=== PATIENT | male | born 1960 | race Caucasian/White ===

== ENCOUNTER 2018-02-21 11:12 | Inpatient (IN) | payer OTHER ==
[~2018-02-21] VITALS: Ht 182.9 cm; Wt 122.5 kg
[~2018-02-21 11:12] MED LIST: AMLODIPINE BESYL5 M1 PO; ASPIRIN EC81 M1 PO; CETIRIZINE HCL10 M1 PO; CLARITIN10 MG PO; DEXILANT60 M1 PO; DEXILANT60 MG PO; DULOXETINE HCL60 MG PO; GABAPENTIN300 M2 PO; GLUCOPHAGE1000 M1 PO; HUMULIN 70100 UNIT/1 SC; IBUPROFEN200 M3 PO; INVOKANA300 M1 PO; INVOKANA300 MG PO; MAGNESIUM OXID400 MG PO; MAGNESIUM250 M2 PO; MEGAKRILL PO; MULTI-DAY VITA1 EACH PO; OMEGA-3 KRILL1 EAC4 PO; PREDNISONE 10MG10 M1 PO; TERAZOSIN HCL10 M1 PO; TERAZOSIN HCL10 MG PO; TRAMADOL HCL50 M1 PO; TRAMADOL HYDROC50 MG PO; VALACYCLOVIR1 GM PO; VALSART/HCTZ TAB 320 PO; VALSARTAN-HCTZ1 EAC3 PO; [UNRECOGNIZED DRUG - CODE] SC
[2018-02-21 11:35] LABS: ABSOLUTE BASOPHIL COUNT 0 /CUMM (0.0-0.2); ABSOLUTE EOSINOPHIL COUNT 0.3 /CUMM (0.0-0.7); ABSOLUTE GRANULOCYTE CT 5.2 /CUMM (1.4-6.5); ABSOLUTE LYMPH COUNT 2.4 /CUMM (1.2-3.4); ABSOLUTE MONOCYTE COUNT 0.8 /CUMM (0.10-0.60); BASOPHIL % 0.4 % (0.0-2.0); EOSINOPHIL % 2.9 % (0-5); GRANULOCYTE % 60.3 % (42.2-75.2); HEMATOCRIT 39.7 % (42-52); MEAN CORPUSCULAR HGB 29.2 PG (27.0-31.0); MEAN CORPUSCULAR VOLUME 85.9 FL (80.0-94.0); MEAN PLATELET VOLUME 8.5 FL (7.4-10.4); PLATELET COUNT 236 /CUMM (130-400); RBC DISTRIBUTION WIDTH 15.8 % (11.5-14.5); RED BLOOD CELL CT 4.62 /CUMM (4.70-6.10); WHITE BLOOD CELL COUNT 8.6 /CUMM (4.8-10.8)
--- NOTE | 2018-02-21 13:33 | ED DYSPNEA/ASTHMA COMPLAINT ---
History of Present Illness General Chief Complaint: Lower Extremity Problems Stated Complaint: BILATERAL LEG SWELLING/DYSPNEA Source: patient Exam Limitations: no limitations Vital Signs & Intake/Output Vital Signs & Intake/Output Vital Signs Date Time Temp Pulse Resp B/P B/P Pulse O2 O2 Flow FiO2 Mean Ox Delivery Rate 02/21 1437 98.5 59 19 192/94 94 Room Air Room Air 02/21 1119 97.1 67 18 186/82 98 Room Air Allergies Uncoded Allergies: POLLEN (Mild, RINITIS 03/17/14) Triage Note: 58 Y/O MALE C/O BILATERAL LOWER EXTREMITY SWELLING X 24 HOURS. 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 PT DENIES CURRENT CHEST PAIN. SAT 98% RA. EKG COMPLETED. TAKEN FOR BLOODWORK. Triage Nurses Notes Reviewed? yes Onset: Gradual Duration: getting worse Timing: recent history Severity: moderate HPI: Patient is a 58-year-old male with a past medical history of hypertension diabetes insulin-dependent, peripheral neuropathy and a recent diagnosis of sleep apnea who presents emergency room with concerns of a one month history of gradually worsening dyspnea on exertion and leg swelling patient states that today after moving wood his shortness of breath AND CHEST TIGHTNESS significantly worsened however he now it's improved but not resolved. Patient denies any fever chills arm pain jaw pain nausea vomiting or lower extremity pain hemoptysis recent travel recent surgery or history of DVT or PE. Denies any smoking history or cardiac disease history. (Wale REBOLLAR,Sony) Reconcile Medications Amlodipine Besylate 5 MG TABLET 1 TAB PO DAILY HTN Aspirin (Ecotrin*) 81 MG TABLET.DR 1 TAB PO DAILY HEART HEALTH (Reported) Cetirizine HCl 10 MG TAB.CHEW 1 TAB PO DAILY ALLERGIES (Reported) Dapagliflozin Propanediol (Farxiga) (Unknown Strength) TABLET (Unknown Dose) PO DAILY DIABETES (Reported) Dexlansoprazole (Dexilant) 60 MG CAP.DR.BP 1 CAP PO DAILY GI (Reported) Duloxetine HCl 60 MG CAPSULE.DR 2 CAP PO QPM NERVE PAIN (Reported) Gabapentin 300 MG CAPSULE 1 CAP PO BID NERVE PAIN (Reported) Ibuprofen 200 MG CAPSULE 2 CAP PO DAILY PAIN (Reported) Insulin Glargine,Hum.rec.anlog (Romario Woodruff) 300 UNIT/ML (1.5 ML) INSULN.PEN 95 UNITS SC QPM DIABETES (Reported) Insulin Lispro (Humalog) (Unknown Strength) VIAL (Unknown Dose) SC TIDAC DIABETES (Reported) Metformin HCl (Glucophage) 1,000 MG TABLET 1 TAB PO BID DIABETES (Reported) Pregabalin (Lyrica) 75 MG CAPSULE 1 CAP PO QPM NEUROPATHY (Reported) Terazosin HCl 10 MG CAPSULE 1 CAP PO QPM BP (Reported) Valsartan/Hydrochlorothiazide (Valsartan-Hctz 320-25 MG Tab) 1 EACH TABLET 1 TAB PO DAILY BP (Reported) (Ki Giles DO) Past History Travel History Traveled to [place] past 21 day No Medical History Any Pertinent Medical History? see below for history Neurological: NEUROPATHY EENT: NONE Cardiovascular: hypertension, hyperlipidemia Respiratory: NONE Gastrointestinal: NONE Hepatic: NONE Renal: NONE Musculoskeletal: NONE Psychiatric: NONE Endocrine: diabetes, DIABETIC NEUROPATHY Cancer(s): NONE NIGHT TIME NANNY/Reproductive: NONE Surgical History Surgical History: none Psychosocial History What is your primary language Sami Tobacco Use: Never used Family History Family History, If Any: FATHER FH: diabetes mellitus Hx Contributory? No (Sony Leonard) Review of Systems Review of Systems Constitutional: Reports: no symptoms. EENTM: Reports: no symptoms. Respiratory: Reports: see HPI. Cardiovascular: Reports: see HPI. GI: Reports: no symptoms. Genitourinary: Reports: no symptoms. Musculoskeletal: Reports: no symptoms. Skin: Reports: no symptoms. Neurological/Psychological: Reports: no symptoms. Hematologic/Endocrine: Reports: no symptoms. Immunologic/Allergic: Reports: no symptoms. All Other Systems: Reviewed and Negative (Sony Leonard) Physical Exam Physical Exam General Appearance: no apparent distress, obese Head: atraumatic Eyes: Bilateral: normal appearance, PERRL. Ears, Nose, Throat: normal ENT inspection, hearing grossly normal Neck: normal inspection, full range of motion Respiratory: normal breath sounds, chest non-tender, no respiratory distress Cardiovascular: regular rate/rhythm Gastrointestinal: normal bowel sounds, soft, non-tender Extremities: normal capillary refill, normal range of motion, no edema Skin: intact, normal color Core Measures ACS in differential dx? Yes CVA/TIA Diagnosis No Sepsis Present: No Sepsis Focused Exam Completed? No (Sony Leonard) Progress Differential Diagnosis: asthma, AMI, bronchitis, costochondritis, CHF, COPD, musculoskeletal pain, pericarditis, pulmonary embolism, pneumonia, pneumothorax, unstable angina Plan of Care: Orders Procedure Date/time Status Heart Healthy Diet 02/22 B Active Heart Healthy Diet 02/21 D Complete TROPONIN LEVEL 02/21 2230 Active EKG 02/[address] in observation 02/21 1730 Active ED Holding Orders 02/21 1730 Active Vital Signs 02/21 1730 Active Code Status 02/21 1730 Active Patient Data 02/21 1718 Active TROPONIN LEVEL 02/21 1530 Complete EKG 02/21 1530 Active FingerStick- Glucose 02/21 1446 Active Add-on Test (ER Only) 02/21 1338 Active Intake & Output 02/21 1320 Active D-DIMER 02/21 1121 Complete TROPONIN LEVEL 02/21 1120 Complete MAGNESIUM 02/21 1120 Complete COMPREHENSIVE METABOLIC PANEL 02/21 1120 Complete CBC WITHOUT DIFFERENTIAL 02/21 1120 Complete B-TYPE NATRIURETIC PEP (BNP) 02/21 1120 Complete EKG 02/21 1113 Active Laboratory Tests 02/21/18 1620: Troponin I 0.03 02/21/18 1121: Anion Gap 9, Estimated GFR > 60, BUN/Creatinine Ratio 17.5, Glucose 136 H, Calcium 8.9, Magnesium 2.0, Total Bilirubin 0.4, AST 41, ALT 50, Alkaline Phosphatase 58, Troponin I 0.02, Xsm-Y-Mrfzviwopev Pept 103, Total Protein 6.5, Albumin 3.7, Globulin 2.8, Albumin/Globulin Ratio 1.3, D-Dimer High Sensitivty 272 H, CBC w Diff NO MAN DIFF REQ, RBC 4.62 L, MCV 85.9, MCH 29.2, MCHC 34.0, RDW 15.8 H, MPV 8.5, Gran % 60.3, Lymphocytes % 27.6, Monocytes % 8.8, Eosinophils % 2.9, Basophils % 0.4, Absolute Granulocytes 5.2, Absolute Lymphocytes 2.4, Absolute Monocytes 0.8 H, Absolute Eosinophils 0.3, Absolute Basophils 0 Patient upon initial presentation is resting comfortable at bedside no apparent distress clear lungs auscultation no respiratory distress was criteria is low patient had age adjusted negative d-dimer no concerns of home embolism at this time chest x-ray was unremarkable first set troponin and EKG unremarkable patient will receive second set at 1530. Patient had persistent mild chest tightness and shortness of breath on the emergency room nitroglycerin was ordered 1550- Patient was given nitroglycerin glycerin and had improvement of his chest pressure 1605 CARDIOLOGY WAS PAGED Due to patient's exertional chest pain and relief with nitroglycerin and heart score 3 and multiple risk factors that telemetry observation was warranted Dr. Mason also agrees AND is aware is also noted into 2016 patient did present TO ED with chest pain and hypertensive crisis where he did not follow-up and establish a senior marketing coordinator Second set troponin was unremarkable discussed observation with patient who agrees Diagnostic Imaging: Viewed by Me: Radiology Read. Radiology Impression: no acute abnormality CXR Impression: no acute abnormality, no infiltrates Initial ED EKG: normal intervals, normal p-waves, normal QRS complex, 656 BPM, NSR Comments: PATIENT: ISIDRA RIDLEY JR PRESENT AGE: 58 PATIENT ACCOUNT NO: [id number] : 60 LOCATION: [facility] ORDERING PHYSICIAN: Sony REBOLLAR SERVICE DATE: 02/21/18 EXAM TYPE: RAD - XRY-CHEST XRAY, TWO VIEWS EXAMINATION: XR CHEST CLINICAL INFORMATION: Shortness of breath COMPARISON: Chest x-ray 02/29/2016 TECHNIQUE: Frontal and lateral views of the chest FINDINGS: Heart size is normal. Pulmonary vascularity is normal. There is some probable subsegmental atelectasis in the lateral costophrenic sulcus on the right. No dense contrast consolidation is appreciated. No other focal findings are seen in the lung caballero at this time. There is no pleural effusion or pneumothorax. There is some hypertrophic spurring in the dorsal spine. IMPRESSION: Minimal subsegmental atelectasis of the right lung base. No other focal findings. DICTATED BY: Kaye Patel MD DATE/TIME DICTATED:02/21/181514 MOBILE PATROL OFFICER:JOHN DATE/TIME TRANSCRIBED:02/21/181514 (Wale REBOLLAR,Sony) Departure Departure Disposition: STILL A PATIENT Condition: Stable Clinical Impression Primary Impression: Angina of effort Referrals: Harjinder Sullivan MD (PCP/Family) Departure Forms: Customer Survey General Discharge Information Observation Note Spoke With: Shiva Christianson MD Physician Advisor Notified: KI GILES DO Place Patient In: Non-ED OBS Care Area Rationale for Observation: My rational for observation is as follows [patient requires telemetry monitoring repeat labs cardiology consultation and pulmonary consultation and repeat EKG and due to patient's heart score risk factors and relief with nitroglycerin that outpatient treatment would be medically harmful]. (Sony Leonard) PA/LOADING RACK SUPERVISOR Co-Sign Statement Statement: ED Attending supervision documentation- [X] I saw and evaluated the patient. I have also reviewed all the pertinent lab results and diagnostic results. I agree with the findings and the plan of care as documented in the PA's/LOADING RACK SUPERVISOR's documentation. [] I have reviewed the ED Record and agree with the PA's/LOADING RACK SUPERVISOR's documentation. [] Additions or exceptions (if any) to the PAs/LOADING RACK SUPERVISOR's note and plan are summarized below: [] I saw and personally examined the patient and I agree with the PAs evaluation. 50-year-old man with exertional chest pain and difficulty breathing. He has a past medical history of diabetes. Initial troponin and EKG were essentially unremarkable. He is being placed in observation for further evaluation and workup. (Brooks HENDERSON,Ki Smyth) Critical Care Note Critical Care Note Critical Care Time: non-applicable (Sony Leonard)
--- NOTE | 2018-02-21 14:40 | ULTRASOUND REPORT ---
EXAMINATION: US TRIPLEX OF LOWER EXTREMITIES, BILATERAL CLINICAL INFORMATION: Leg swelling and edema, shortness of breath COMPARISON: None TECHNIQUE: Color-flow triplex imaging with spectral analysis and compression Doppler were performed on the lower extremities. FINDINGS: Respiratory variation, normal compression and augmented flow are noted throughout the lower extremities. The visualized common femoral vein, superficial femoral vein, profunda femoral vein, popliteal vein and midcalf peroneal and posterior tibial venous segments show no evidence of deep venous thrombosis. Note is made of edema bilaterally. There is no Bañuelos's cyst. IMPRESSION: No evidence of deep venous thrombosis involving the bilateral lower extremities. Bilateral lower extremity edema.
[2018-02-21] MEDS ORDERED: HUMALOG100 UNIT/2 SC (14:50)
[2018-02-21] MEDS ORDERED: TOUJEO SOL300 UNIT/1 SC (14:53)
[2018-02-21] MEDS ORDERED: FARXIGA5 M1 PO (14:54)
[2018-02-21] MEDS ORDERED: LYRICA75 M1 PO (14:57)
--- NOTE | 2018-02-21 15:26 | RADIOLOGY REPORT ---
EXAMINATION: XR CHEST CLINICAL INFORMATION: Shortness of breath COMPARISON: Chest x-ray 02/29/2016 TECHNIQUE: Frontal and lateral views of the chest FINDINGS: Heart size is normal. Pulmonary vascularity is normal. There is some probable subsegmental atelectasis in the lateral costophrenic sulcus on the right. No dense contrast consolidation is appreciated. No other focal findings are seen in the lung caballero at this time. There is no pleural effusion or pneumothorax. There is some hypertrophic spurring in the dorsal spine. IMPRESSION: Minimal subsegmental atelectasis of the right lung base. No other focal findings.
--- NOTE | 2018-02-21 17:23 | History & Physical ---
Arcelia Neumann 02/21/18 1722: General Information and HPI History of Present Illness: Pt is a 58-year-old M with a PMHx of HTN, DM, HAYDEN, diabetic neuropathy, bilateral lower extremity edema, presented to the ED at [facility] with chief complaint of substernal chest pain on exertion at work. Patient also complains of abdominal distention and puffiness of the face for the past few days and pedal edema bilateral legs for the past few weeks.Pt reports increase in intake of salty food lately. Patient denies palpitations, chest pain worsening on leaning forward, chest pain radiating to the back, chest pain on taking deep breaths, fever, chills, sick contacts, dysuria, hematuria, change on bowel or urinary habits. His last stress test and echo were done in 2003( negative). He does not f/u with any hotel desk clerk. Vitals on admission: Temp 98.5, BP 186/82 , pulse 59/min, RR 19, sating 94 on RA. Pertinent labs on adm:WBC 8.6, hemoglobin 13.5, platelet 236, sodium 142, potassium 3.4, BUN 21, creatinine 1. 2, d-dimer 237, troponin 0 0.02---> 0.03 Imaging on admission: #Ultrasound Doppler-no evidence of DVT. Bilateral lower extremity edema chest x -ray #Chest [id number] subsegmental atelectasis of the right lung base. No other focal findings. Treatment in the ED: Nitroglycerin sublingual 0.4 mg, aspirin 325 mg Allergies/Medications Allergies: Uncoded Allergies: POLLEN (Mild, RINITIS 03/17/14) Past History Travel History Traveled to [place] past 21 day No Medical History Neurological: NEUROPATHY EENT: NONE Cardiovascular: hypertension, hyperlipidemia Respiratory: NONE Gastrointestinal: NONE Hepatic: NONE Renal: NONE Musculoskeletal: NONE Psychiatric: NONE Endocrine: diabetes, DIABETIC NEUROPATHY Cancer(s): NONE BOTTLE MACHINE OPERATOR/Reproductive: NONE Surgical History Surgical History: none Past Family/Social History Family History Relations & Conditions if any FATHER FH: diabetes mellitus Review of Systems Review of Systems Constitutional: Reports: see HPI. Exam & Diagnostic Data Last 24 Hrs of Vital Signs/I&O Vital Signs Date Time Temp Pulse Resp B/P B/P Pulse O2 O2 Flow FiO2 Mean Ox Delivery Rate 02/21 2138 60 166/70 02/21 2015 98.0 56 16 190/102 94 Room Air 02/22 2000 184/80 02/21 1839 98.9 59 18 182/84 95 Room Air Room Air 02/21 1437 98.5 59 19 192/94 94 Room Air Room Air 02/21 1119 97.1 67 18 186/82 98 Room Air Intake & Output 02/22 0800 02/22 0000 02/21 1600 Intake Total 350 0 Output Total 350 Balance 0 0 Intake, Oral 350 0 Output, Urine 350 Patient 281 lb 260 lb Weight Weight Bed scale Reported by Patient Measurement Method Physical Exam General Appearance Alert, Oriented X3, Cooperative, No Acute Distress Skin No Rashes, No Breakdown, No Significant Lesion Skin Temp/Moisture Exam: Cool/Dry Sepsis Skin Exam (color): Normal for Ethnicity HEENT Atraumatic, PERRLA, EOMI, Mucous Membr. moist/pink Neck Supple Cardiovascular Regular Rate, Normal S1, Normal S2, No Murmurs Lungs Clear to Auscultation, Normal Air Movement Abdomen Normal Bowel Sounds, Soft, No Tenderness, No Hepatospenomegaly, No Masses Neurological Normal Speech, Strength at 5/5 X4 Ext, Normal Tone, Sensation Intact, Cranial Nerves 3-12 NL, Reflexes 2+ Extremities No Clubbing, No Cyanosis, No Edema, Normal Pulses Assessment/Plan Assessment: Assessment and plan: 1. Chest pain-R/o ACS/new onset CHF: The exertional substernal CP that pt presents with, his highly likely to be cardiac in origin. The pain was relieved by S/L NTG in the ED, and was more like a chest tightness when I evaluated the pt. His first set of troponin and EKG are negative. His chest pain and sob can be sec to new onset HF. PE is unlikely as well, given Neg Doppler L/L and low d-dimer. * EKG and trops X3 * Mag levels * proBNP * TSH, T4 * echo * daily weights * monitor I & O * Salt restricted diet 2. Hypertensive urgency- At the time of admission, patient had high blood pressure of systolic 180s. * Wong. losartan, hydrochlorothiazide & amlodipine 3. DM Type 2 * Accu-Chek * sliding scale NovoLog insulin & half of his long-acting insulin * HbA1c. 4. Chronic LBP: * Cont. Duloxetine 5. Diabetic Nueropathy: * Increase lyrica, d/c gabapentin #Code: Full code Diet: consistent carbohydrate, heart healthy DVT px: ALPS As Ranked By This Provider Problem List: 1. Angina of effort 2. Hypertensive urgency 3. Edema, lower extremity 4. Distended abdomen Core Measures/Misc (04/18) Acute Coronary Syndrome ACS Diagnosis: Yes Last Known EF % 60 Congestive Heart Failure Congestive Heart Failure Diagnosis Yes Last Known EF % 60 Cerebrovascular Accident CVA/TIA Diagnosis: No VTE (View Protocol) VTE Risk Factors No risk factors No Mechanical VTE Prophylaxis d/t N/A MechProphylax Ordered No VTE Pharm Prophylaxis d/t NA PharmProphylax ordered Sepsis (View protocol) Sepsis Present: No If YES complete Sepsis Event Note If YES complete Sepsis Event Note Erin DOMÍNGUEZ,[facility] 02/21/18 8451: General Information and HPI Allergies/Medications Home Med list Amlodipine Besylate 5 MG TABLET 1 TAB PO DAILY HTN Aspirin (Ecotrin*) 81 MG TABLET.DR 1 TAB PO DAILY HEART HEALTH (Reported) Cetirizine HCl 10 MG TAB.CHEW 1 TAB PO DAILY ALLERGIES (Reported) Clonidine HCl 0.3 MG TABLET 1 TAB PO QPM HTN (Reported) Dapagliflozin Propanediol (Farxiga) 5 MG TABLET 2 TAB PO DAILY DIABETES ( Reported) Dexlansoprazole (Dexilant) 60 MG CAP.DR.BP 1 CAP PO DAILY GI (Reported) Duloxetine HCl 60 MG CAPSULE.DR 2 CAP PO QPM NERVE PAIN (Reported) Ezetimibe (Zetia) 10 MG TABLET 1 TAB PO DAILY HLD (Reported) Gabapentin 300 MG CAPSULE 1 CAP PO BID NERVE PAIN (Reported) Glimepiride (Amaryl) 4 MG TABLET 1 TAB PO DAILY DIABETES (Reported) Ibuprofen 200 MG CAPSULE 2 CAP PO DAILY PAIN (Reported) Insulin Glargine,Hum.rec.anlog (Toujeo Solostar) 300 UNIT/ML (1.5 ML) INSULN.PEN 95 UNITS SC QPM DIABETES (Reported) Insulin Lispro (Humalog) (Unknown Strength) VIAL (Unknown Dose) SC TIDAC DIABETES (Reported) Metformin HCl (Glucophage) 1,000 MG TABLET 1 TAB PO BID DIABETES (Reported) Pregabalin (Lyrica) 75 MG CAPSULE 1 CAP PO QPM NEUROPATHY (Reported) Terazosin HCl 10 MG CAPSULE 1 CAP PO QPM BP (Reported) Valsartan/Hydrochlorothiazide (Valsartan-Hctz 320-25 MG Tab) 1 EACH TABLET 1 TAB PO DAILY BP (Reported) Core Measures/Misc (04/18) Sepsis (View protocol) If YES complete Sepsis Event Note If YES complete Sepsis Event Note Resident Review Statement Resident Statement: examined this patient, discussed with internet systems administrator, agreed with internet systems administrator Other Findings: 58-year-old gentleman with past medical history of diabetes, hypertension, obstructive sleep apnea, diabetic neuropathy, bilateral lower extremity edema came to [facility] with complaint of chest pain. Patient is placed in observation telemetry for the same. Patient had substernal chest discomfort this morning with no radiation or any relieving factors. Patient also complains of pedal edema bilateral legs for the past few weeks and abdominal distention since today morning. Patient denies palpitations, chest pain worsening on leaning forward, chest pain radiating to the back, fever, chills, recent change in medication, sick contacts, travel, dizziness, fall, loss of consciousness, back pain, dysuria, hematuria, constipation, diarrhea. Patient endorses shortness of breath today morning while lifting weight at work and also increased sodium intake for 5 days ago. Patient also endorses having facial puffiness for the past few days. Patient endorses that he never had these kind of symptoms in the past few years. He has never seen a hotel desk clerk in 14 years. Other than his primary care physician and potato chip fryer patient does not see any other specialist. Patient had a stress test and echo done in 2003 which was negative. Admission vitals Temperature 98.5, pulse rate 59, respiratory rate 19, blood pressure 186/82 saturating 94 at room air. Admission labs WBC 8.6, hemoglobin 13.5, platelet 236, sodium 142, potassium 3.4, BUN 21, creatinine -1. 2, troponin 0 0.02,---> 0.03 ED treatment Nitroglycerin sublingual 0.4 mg, aspirin 325 mg Imaging Ultrasound Doppler-no evidence of DVT. Bilateral lower extremity edema chest x- ray Chest x-ray Minimal subsegmental atelectasis of the right lung base. No other focal findings. Home medications Amlodipine 5 mg Aspirin Canagliflozin-Held Dapagliflozin Propanedio- held insulin lispro insulin glargine 95 qpm pregabalin/gabapentin/duloxetin terazosin valsartan/hctz On examination Patient is obese, conscious, oriented x3. He is not in acute distress. Patient is not on oxygen. He is able to converse in complete sentence. Head To Toe-bilateral 1+ pedal edema up to the level of knee. Bilateral peripheral pulses felt. CVS-S1-S2 no murmur Respiratory system-normal vesicular breath sounds. No added sounds Abdomen-mildly distended with positive fluid thrill. Bowel sounds heard. 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 Assessment and plan 1. Chest pain rule out ACS/new onset CHF: patient has substernal chest pain which is typical of cardiac in origin. Patient chest pain relieved with sublingual nitroglycerin once and is not reproducible. We will give sublingual nitroglycerin and follow-up with his troponin and EKG at 1030. His first set of troponin and EKG are negative. Patient has shortness of breath and his d-dimer is 237. Suspicion for PE is low at this point. Patient had Doppler ultrasound of the legs done which was negative for deep vein thrombosis. His chest pain and sob can be sec to new onset HF. We will do proBNP, TSH, T4, magnesium, echocardiogram. Cardiology Dr. Mason has been informed. Given his bilateral pedal edema and abdominal distention he does not appear that patient is in florid CHF. 2. Hypertensive urgency-upon admission patient had high blood pressure of systolic 180s. Patient endorses having blood pressure of 150s and 160s at home. We will continue his losartan and hydrochlorothiazide which will also help with this bilateral pedal edema. We will also continues amlodipine. 3. Diabetes on insulin-patient fasting at home is around 114. We will do Accu- Chek and sliding scale NovoLog insulin. We will give half of his long-acting insulin. We will check HbA1c. 4. Hypertension-continue amlodipine, losartan, hydrochlorothiazide. diet-heart helathy diet Shiva Christianson MD 02/21/182120: Core Measures/Misc (04/18) Sepsis (View protocol) If YES complete Sepsis Event Note If YES complete Sepsis Event Note Attending MD Review Statement Attending Statement Attending MD Statement: examined this patient, discuss w/resident/PA/INFORMATION ASSURANCE SPECIALIST, agreed w/resident/PA/INFORMATION ASSURANCE SPECIALIST, discussed with family, reviewed EMR data (avail), reviewed images, amended to note Attending Assessment/Plan: The patient is a 58 yo male with h/o HTN, HL, chronic back pain, GERD, HAYDEN ( recently diagnosed), DM2- on insulin (with neuropathy) who presented in the ED with c/o substernal chest heaviness. which began after mild exertion today. The pain was associated with some dyspnea, no radiation, nausea, abdominal pain, palpitations, etc. and was partially relieved by SL NTG given in ED. The patient has noted several week h/o increased LE edema and feeling of increased abdominal girth. He had a h/o prior cardiac evaluation 14 years ago (pharmacologic stress and ECHO which were negative). He is followed by Endocrinology for his diabetes and recently saw the nurse practitioner who advised increased fluids. His BP had been running high recently. The Endocrinology POWER TRANSFORMER INSPECTOR saw him at the end of December and had heard a heart murmur and referred him to see Dr. Chance who has seen him in the distant past. Physical Exam: VS: T 98.5, P 59, R 18, BP 186/82, PO 94% RA HEENT: eyes - PERRLA, EOMI luis miguel- moist mucosa Neck: no JVD, bruits Chest: clear, breath sounds slightly diminished at bases Cor: RRR nl S1, S2, ?1/6 sys murm LSB Abd: BS+, distended, non-tender, unable to palpate liver/spleen Ext: 1-2+ edema LE- to thighs and ?sl abdominal edema, pulses 2+ Neuro: alert & oriented x 3, non-focal exam, ? distal decreased sensory Labs/Tests- CXR w/o CHF, BNP nl, D-dimer- min edgardo, US LE- neg DVT Impression/Plan: #Chest Pain- Etiology is unclear. The initial troponin I levels were negative x 2 (with chest pain) and there were no ST-T changes on EKG making less likely to represent ischemic pain. The pain was improved post NTG, however. GERD/ esophageal spasm is a possibility as he does have a h/o GERD. Pulmonary embolism is unlikely with negative LE US and D-dimer is not significantly elevated. Plan: Will bring into Telemetry service under OBServation. Cardiology consult- Dr. Mason. Complete checking troponin I levels. Further workup pending clinical course. Continue PPI (omeprazole bid in place of Dexilant). Continue ASA. #Lower Extremity Edema/Increased Abdominal Girth/Volume Overload- venous US negative for DVT. Has no clinical CHF as BNP was normal, CXR w/o CHF and no rales on exam. Cardiology note indicates "CHF", however could represent right sided failure due to ?HAYDEN (recently diagnosed this is not listed in his [place] OP chart from Endocrinology). May also be related to use of Amlodipine and increased fluid/sodium intake. Plan: Will give furosemide as suggested by cardiology- follow I/O's & daily weights. ECHO cardiogram. Will ask patient more regarding diagnosis of HAYDEN to see if he has used CPAP, etc. Did not see any sleep studies in records here (chart says recently diagnosed HAYDEN). #Essential HTN- BP has been difficult to control recently. Furosemide will help. Unclear why he is taking Clonidine qpm? Plan: Agree with Furosemide and increase in Losartan/Amlodipine as per Cardiology. Hold HCTZ. Continue Terazosin. #DM2- has been followed by endocrinology. Plan: Continue insulin and sliding scale coverage. Hold Metformin/Farxiga. #Diabetic Neuropathy- on both Gabapentin and Lyrica? Not clear why he is on 2 medications. Plan: Will review history with patient and consider simply increasing Lyrica and eliminating Gabapentin. #Hyperlipidemia- on Zetia. Plan: Continue Zetia. #Chronic Back Pain- on Duloxetine. Plan: Continue Duloxetine.
[2018-02-21] MEDS ORDERED: CLONIDINE HCL0.3 M1 PO (18:45)
[2018-02-21] MEDS ORDERED: ZETIA10 M1 PO (18:45)
[2018-02-21] MEDS ORDERED: AMARYL4 M1 PO (18:46)
--- NOTE | 2018-02-21 19:22 | Cons- Cardiology ---
General Information and HPI Consulting Request Date of Consult: 02/21/18 Requested By: Shiva Christianson MD Reason for Consult: Chest discomfort History of Present Illness: The patient is a 58-year-old male with history of hypertension, diabetes mellitus and hyperlipidemia who presents with chest discomfort and shortness of breath. He notes that his blood pressure has recently been poorly controlled. He notes that for the past few days he has developed lower extremity edema. This morning he developed shortness of breath and chest tightness which was intermittent throughout the morning. In the emergency department he was treated with several nitroglycerin with near resolution of the discomfort. He later had a second nitroglycerin tablet with further improvement. No syncope. No diaphoresis. No lightheadedness or dizziness. No nausea or vomiting. Allergies/Medications Allergies: Uncoded Allergies: POLLEN (Mild, RINITIS 03/17/14) Home Med List: Amlodipine Besylate 5 MG TABLET 1 TAB PO DAILY HTN Aspirin (Ecotrin*) 81 MG TABLET.DR 1 TAB PO DAILY HEART HEALTH (Reported) Cetirizine HCl 10 MG TAB.CHEW 1 TAB PO DAILY ALLERGIES (Reported) Clonidine HCl 0.3 MG TABLET 1 TAB PO QPM HTN (Reported) Dapagliflozin Propanediol (Farxiga) 5 MG TABLET 2 TAB PO DAILY DIABETES ( Reported) Dexlansoprazole (Dexilant) 60 MG CAP.DR.BP 1 CAP PO DAILY GI (Reported) Duloxetine HCl 60 MG CAPSULE.DR 2 CAP PO QPM NERVE PAIN (Reported) Ezetimibe (Zetia) 10 MG TABLET 1 TAB PO DAILY HLD (Reported) Gabapentin 300 MG CAPSULE 1 CAP PO BID NERVE PAIN (Reported) Glimepiride (Amaryl) 4 MG TABLET 1 TAB PO DAILY DIABETES (Reported) Ibuprofen 200 MG CAPSULE 2 CAP PO DAILY PAIN (Reported) Insulin Glargine,Hum.rec.anlog (Tourocky Solostar) 300 UNIT/ML (1.5 ML) INSULN.PEN 95 UNITS SC QPM DIABETES (Reported) Insulin Lispro (Humalog) (Unknown Strength) VIAL (Unknown Dose) SC TIDAC DIABETES (Reported) Metformin HCl (Glucophage) 1,000 MG TABLET 1 TAB PO BID DIABETES (Reported) Pregabalin (Lyrica) 75 MG CAPSULE 1 CAP PO QPM NEUROPATHY (Reported) Terazosin HCl 10 MG CAPSULE 1 CAP PO QPM BP (Reported) Valsartan/Hydrochlorothiazide (Valsartan-Hctz 320-25 MG Tab) 1 EACH TABLET 1 TAB PO DAILY BP (Reported) Current Medications: Current Medications Sig/Arlet Start time Last Medication Dose Route Stop Time Status Admin Amlodipine Besylate 5 MG DAILY 02/21 1838 AC 02/21 PO 1906 Aspirin 0 .STK-MED ONE 02/21 1800 DC PO Aspirin 325 MG ONCE ONE 02/21 1645 DC 02/21 PO 02/21 164 1800 Aspirin Buffered 81 MG DAILY 02/21 1838 AC PO Duloxetine HCl 120 MG QPM 02/21 2100 AC PO Ezetimibe 10 MG DAILY 02/21 1847 AC 02/21 PO 1906 Gabapentin 300 MG BID 02/21 2100 AC PO Hydrochlorothiazide 25 MG DAILY 02/21 184 AC 02/21 PO 1906 Insulin Aspart 0 TIDAC 02/22 0800 AC SC Insulin Detemir 45 UNITS DAILY 02/22 0900 AC SC Losartan Potassium 0 .STK-MED ONE 02/21 1904 DC PO Losartan Potassium 50 MG DAILY 02/21 1839 AC 02/21 PO 1906 Nitroglycerin 0.4 MG ONCE ONE 02/21 1815 DC 02/21 SL 02/21 1816 1906 Nitroglycerin 0.4 MG ONCE ONE 02/21 1545 DC 02/21 SL 02/21 1546 1546 Pregabalin 75 MG QPM 02/21 2100 AC PO Review of Systems Review of Systems: No fever. No chills. No hemoptysis. No hematemesis. No chest pain. No shortness of breath. No diaphoresis. No palpitations. No lightheadedness or dizziness. No nausea or vomiting. Past History Travel History Traveled to [place] past 21 day No Medical History Neurological: NEUROPATHY EENT: NONE Cardiovascular: hypertension, hyperlipidemia Respiratory: NONE Gastrointestinal: NONE Hepatic: NONE Renal: NONE Musculoskeletal: NONE Psychiatric: NONE Endocrine: diabetes, DIABETIC NEUROPATHY Cancer(s): NONE POWER SEWING MACHINE OPERATOR/Reproductive: NONE Surgical History Surgical History: 1 Family History Relations & Conditions If Any: FATHER Coronary artery bypass graft surgery FH: diabetes mellitus Exam & Diagnostic Data Vital Signs and I&O Vital Signs Date Time Temp Pulse Resp B/P B/P Pulse O2 O2 Flow FiO2 Mean Ox Delivery Rate 02/21 1839 98.9 59 18 182/84 95 Room Air Room Air 02/21 1437 98.5 59 19 192/94 94 Room Air Room Air 02/21 1119 97.1 67 18 186/82 98 Room Air Intake & Output 02/21 1600 02/21 0800 02/21 0000 02/20 1600 02/20 0800 02/20 0000 Intake Total 0 Output Total Balance 0 Intake, Oral 0 Patient 260 lb Weight Weight Reported by Patient Measurement Method Physical Exam: Gen: The patient is in no acute distress HEENT: Normal nose, ears, and oropharynx. Pupils equal bilaterally. Conjunctiva normal. Neck: Supple with no JVD, no masses, and no thyromegaly Lungs: Scattered rhonchi bilaterally with normal respiratory effort Heart: RRR, S1, S2, no murmurs. 2+ peripheral edema, 2+ pulses in the lower extremities bilaterally Abdomen: Soft, nontender, no masses. No hepatomegaly. No splenomegaly Extremities: No clubbing or cyanosis. Normal muscle strength in the upper and lower extremities Skin: Normal skin turgor with no skin ulcers or lesions noted. Neuro: Cranial nerves intact. Sensation intact Psych: Alert and oriented x 3 with appropriate affect Labs/Sergo Results: Laboratory Tests 02/21 02/21 1620 1121 Chemistry Sodium (137 - 145 mmol/L) 142 Potassium (3.5 - 5.1 mmol/L) 3.4 L Chloride (98 - 107 mmol/L) 102 Carbon Dioxide (22 - 30 mmol/L) 30 Anion Gap (5 - 16) 9 BUN (9 - 20 mg/dL) 21 H Creatinine (0.7 - 1.2 mg/dL) 1.2 Estimated GFR (>60 ml/min) > 60 BUN/Creatinine Ratio (7 - 25 %) 17.5 Glucose (65 - 99 mg/dL) 136 H Calcium (8.4 - 10.2 mg/dL) 8.9 Magnesium (1.6 - 2.3 mg/dL) 2.0 Total Bilirubin (0.2 - 1.3 mg/dL) 0.4 AST (17 - 59 U/L) 41 ALT (21 - 72 U/L) 50 Alkaline Phosphatase (< 127 U/L) 58 Troponin I (<0.11 ng/ml) 0.03 0.02 Jpd-B-Sfsfrkwszie Pept (<125 pg/mL) 103 Total Protein (6.3 - 8.2 g/dL) 6.5 Albumin (3.5 - 5.0 g/dL) 3.7 Globulin (1.9 - 4.2 gm/dL) 2.8 Albumin/Globulin Ratio (1.1 - 2.2 %) 1.3 TSH (0.270 - 4.200 uIU/mL) 5.020 H Free T4 (0.64 - 1.79 ng/dL) 1.05 Coagulation D-Dimer High Sensitivty (0 - 243 ng/ml) 272 H Hematology CBC w Diff NO MAN DIFF REQ WBC (4.8 - 10.8 /CUMM) 8.6 RBC (4.70 - 6.10 /CUMM) 4.62 L Hgb (14.0 - 18.0 G/DL) 13.5 L Hct (42 - 52 %) 39.7 L MCV (80.0 - 94.0 FL) 85.9 MCH (27.0 - 31.0 PG) 29.2 MCHC (33.0 - 37.0 G/DL) 34.0 RDW (11.5 - 14.5 %) 15.8 H Plt Count (130 - 400 /CUMM) 236 MPV (7.4 - 10.4 FL) 8.5 Gran % (42.2 - 75.2 %) 60.3 Lymphocytes % (20.5 - 51.1 %) 27.6 Monocytes % (1.7 - 9.3 %) 8.8 Eosinophils % (0 - 5 %) 2.9 Basophils % (0.0 - 2.0 %) 0.4 Absolute Granulocytes (1.4 - 6.5 /CUMM) 5.2 Absolute Lymphocytes (1.2 - 3.4 /CUMM) 2.4 Absolute Monocytes (0.10 - 0.60 /CUMM) 0.8 H Absolute Eosinophils (0.0 - 0.7 /CUMM) 0.3 Absolute Basophils (0.0 - 0.2 /CUMM) 0 Diagnostic Data EKG Results EKG tracing is independently reviewed, and reveals normal sinus rhythm at 60 with intraventricular conduction delay CXR Results Minimal subsegmental atelectasis of the right lung base. No other focal findings. Other Results Lower extremity Doppler study: No evidence of deep venous thrombosis involving the bilateral lower extremities. Bilateral lower extremity edema. Assessment/Plan Assessment/Plan The patient is a 58-year-old male with history of diabetes mellitus, hypertension, and hyperlipidemia who presents with shortness of breath and chest discomfort. The chest discomfort is responsive to several nitroglycerin. He has evidence of fluid overload on exam consistent with possible CHF, however proBNP is normal. His hypertension is recently been uncontrolled Recommendations: * Monitor on telemetry * Increase losartan to 100 mg daily * Increase amlodipine to 10 mg daily * Continue aspirin * Echocardiogram * Lasix 20 mg IV every 12 hours for possible congestive heart failure * Monitor input and output with daily weights * Supplement potassium * Hold hydrochlorthiazide while on Lasix Consult Acknowledgment - Thank you for your consult request.
[2018-02-21 20:00] VITALS: BP 184/80
[2018-02-21 20:15] VITALS: BP 190/102
[2018-02-21 21:38] VITALS: BP 166/70
[2018-02-22] VITALS (7 sets, daily range): BP systolic 164–210; BP diastolic 80–120
--- NOTE | 2018-02-22 07:45 | PN- Housestaff ---
Arcelia Neumann 02/22/18 0745: Subjective Follow-up For: Chest pain. B/L pitting edema, abd distension Complaints: no complaints Tele-Events Since Last Visit: NSR. HR 66-69 Subjective: Pt seen and examined in bed lying comfortably. No CP/ No SOB anymore. No complaints ambulating. no acute events Review of Systems Constitutional: Reports: see HPI. Objective Last 24 Hrs of Vital Signs/I&O Vital Signs Date Time Temp Pulse Resp B/P B/P Pulse O2 O2 Flow FiO2 Mean Ox Delivery Rate 02/23 0044 64 180/110 02/22 2234 98.1 71 16 180/120 92 02/22 1909 71 18 164/80 02/22 1614 70 18 210/110 02/22 1609 78 18 190/86 02/22 1412 98.9 70 18 176/84 93 Room Air 02/22 0845 72 16 170/82 02/22 0845 72 16 170/82 02/22 0844 98.6 72 16 168/82 02/22 0618 97.9 68 18 170/98 93 Room Air Intake & Output 02/23 0800 02/23 0000 02/22 1600 Intake Total 440 Output Total 425 750 Balance 15 -750 Intake, Oral 440 Output, Urine 425 750 Patient 274 lb Weight Physical Exam General Appearance: Alert, Oriented X3, Cooperative, No Acute Distress Skin: No Rashes, No Breakdown, No Significant Lesion Skin Temp/Moisture Exam: Cool/Dry HEENT: Atraumatic Neck: Supple Cardiovascular: Regular Rate, Normal S1, Normal S2, No Murmurs Lungs: Normal Air Movement Abdomen: Normal Bowel Sounds, Soft, No Tenderness Neurological: Normal Speech, Strength at 5/5 X4 Ext Extremities: No Clubbing, No Cyanosis, b/l l/l edema Vascular: Normal Pulses Assessment/Plan Assessment: Pt is a 58-year-old M with a PMHx of HTN, DM, HAYDEN, diabetic neuropathy, bilateral lower extremity edema, presented to the ED at [facility] with chief complaint of substernal chest pain on exertion at work. Patient also complains of abdominal distention and puffiness of the face for the past few days and pedal edema bilateral legs for the past few weeks.Pt reports increase in intake of salty food lately. Patient denies palpitations, chest pain worsening on leaning forward, chest pain radiating to the back, chest pain on taking deep breaths, fever, chills, sick contacts, dysuria, hematuria, change on bowel or urinary habits. VS: BP was going high overnight: 184/80, 190/102, 166/70, 170/98. Afebrile, sating well on RA Problems list: 1. Chest Pain 2. b/l l/l edema & abd distension-CHF A & P: * change from obs status to admitted 1. Chest pain-R/o ACS/new onset CHF: Chest pain and sob can be sec to new onset HF * Wong. IV lasix 20 mg IV BID * Losartan 100 mg po OD * Continue amlodipine 10 mg daily * Restart terazosin at his usual outpatient dose of 10 mg daily for additional blood pressure control * next 24-48 hours we will transition to oral diuretic therapy * Keep check on K and Mag levels * echo pending * daily weights * monitor I & O * Salt restricted diet 2. Hypertensive urgency * Wong. losartan, hydrochlorothiazide & amlodipine 3. DM Type 2 * Accu-Chek * sliding scale NovoLog insulin & half of his long-acting insulin * HbA1c. 4. Chronic LBP: * Cont. Duloxetine 5. Diabetic Nueropathy: * Increase lyrica, d/c gabapentin #Code: Full code Diet: consistent carbohydrate, heart healthy DVT px: ALPS Problem List: 1. Distended abdomen 2. Edema, lower extremity 3. Angina of effort Pain Ratin Pain Location: none Pain Goal: Remain pain free Pain Plan: follow pain pathway Tomorrow's Labs & Rationales: guadalupe Sepulveda MD,Dick 02/22/18 1236: Attending MD Review Statement Attending Statement Attending MD Statement: examined this patient, discuss w/resident/PA/CONVEYOR WEIGHER OPERATOR, agreed w/resident/PA/CONVEYOR WEIGHER OPERATOR, reviewed EMR data (avail), discussed with nursing, discussed with case mgmt, amended to note Attending Assessment/Plan: Patient seen and examined. Resting comfortably not in acute distress. He reports feeling much better compared to presentation. Denies chest pain or shortness of breath. Denies palpitations.Cardiology consultation appreciated. On examination heart sounds are regular. With no audible murmur. Lungs are clear to auscultation bilaterally. He bilateral lower extremity edema. Will continue diuresis with Lasix IV. We will follow-up results of echocardiogram. In the next 24-48 hours we will transition to oral diuretic therapy. Follow-up with cardiology service regarding need for any further testing for ischemia given his complaint of chest pain on presentation. Will optimize his medication regimen for his uncontrolled HTN.
[2018-02-22 07:47] LABS: ABSOLUTE BASOPHIL COUNT 0 /CUMM (0.0-0.2); ABSOLUTE EOSINOPHIL COUNT 0.2 /CUMM (0.0-0.7); ABSOLUTE GRANULOCYTE CT 5.6 /CUMM (1.4-6.5); ABSOLUTE LYMPH COUNT 1.9 /CUMM (1.2-3.4); ABSOLUTE MONOCYTE COUNT 0.6 /CUMM (0.10-0.60); BASOPHIL % 0.4 % (0.0-2.0); EOSINOPHIL % 2.9 % (0-5); GRANULOCYTE % 67.6 % (42.2-75.2); HEMATOCRIT 39.4 % (42-52); MEAN CORPUSCULAR HGB 29.1 PG (27.0-31.0); MEAN CORPUSCULAR VOLUME 85.6 FL (80.0-94.0); PLATELET COUNT 235 /CUMM (130-400); WHITE BLOOD CELL COUNT 8.3 /CUMM (4.8-10.8)
--- NOTE | 2018-02-22 14:17 | PN- Cardiology ---
Subjective Subjective: The patient reports that he is feeling much better today. Shortness of breath and chest discomfort have improved significant. No palpitations. No diaphoresis. No nausea or vomiting. No lightheadedness or dizziness. Objective Vital Signs and I&Os Vital Signs Date Time Temp Pulse Resp B/P B/P Pulse O2 O2 Flow FiO2 Mean Ox Delivery Rate 02/22 0845 72 16 170/82 02/22 0845 72 16 170/82 02/22 0844 98.6 72 16 168/82 02/22 0618 97.9 68 18 170/98 93 Room Air 02/21 2138 60 166/70 02/21 2015 98.0 56 16 190/102 94 Room Air 02/22 2000 184/80 02/21 1839 98.9 59 18 182/84 95 Room Air Room Air 02/21 1437 98.5 59 19 192/94 94 Room Air Room Air Intake & Output 02/22 1600 02/22 0800 02/22 0000 02/21 1600 02/21 0800 02/21 0000 Intake Total 100 350 0 Output Total 350 Balance 100 0 0 Intake, Oral 100 350 0 Output, Urine 350 Patient 281 lb 260 lb Weight Weight Bed scale Reported by Patient Measurement Method Physical Exam: Gen: The patient is in no acute distress HEENT: Normal nose, ears, and oropharynx. Pupils equal bilaterally. Conjunctiva normal. Neck: Supple with no JVD, no masses, and no thyromegaly Lungs: Scattered rhonchi bilaterally with normal respiratory effort Heart: RRR, S1, S2, no murmurs. 2+ peripheral edema, 2+ pulses in the lower extremities bilaterally Abdomen: Soft, nontender, no masses. No hepatomegaly. No splenomegaly Extremities: No clubbing or cyanosis. Normal muscle strength in the upper and lower extremities Skin: Normal skin turgor with no skin ulcers or lesions noted. Neuro: Cranial nerves intact. Sensation intact Psych: Alert and oriented x 3 with appropriate affect Current Medications: Current Medications Sig/Arlet Start time Last Medication Dose Route Stop Time Status Admin Amlodipine Besylate 10 MG DAILY 02/22 0900 AC 02/22 PO 0845 Amlodipine Besylate 5 MG DAILY 02/21 1838 DC 02/21 PO 1906 Aspirin 0 .STK-MED ONE 02/21 1800 DC PO Aspirin 325 MG ONCE ONE 02/21 1645 DC 02/21 PO 02/21 1646 1800 Aspirin Buffered 81 MG DAILY 02/21 183 02/22 PO 09 Duloxetine HCl 120 MG QPM 02/21 2100 AC 02/21 PO 215 Ezetimibe 10 MG DAILY 02/21 1847 02/22 PO 0924 Furosemide 20 MG 7:30 AM, & 4:30 PM 02/21 2015 02/22 IV 0802 Gabapentin 300 MG BID 02/21 2100 02/22 PO 0845 Hydrochlorothiazide 25 MG DAILY 02/21 184 WI 02/21 PO 1906 Insulin Aspart 0 TIDAC 02/22 0800 SC Insulin Detemir 45 UNITS DAILY 02/22 09 02/22 SC 0845 Losartan Potassium 100 MG DAILY 02/22 09 AC 02/22 PO 0845 Losartan Potassium 0 .STK-MED ONE 02/21 190 DC PO Losartan Potassium 50 MG DAILY 02/21 183 WI 02/21 PO 1906 Nitroglycerin 0.4 MG ONCE ONE 02/21 181 WI 02/21 02/21 1816 1906 Nitroglycerin 0.4 MG ONCE ONE 02/21 1545 [place] 02/21 02/21 1546 1546 Pregabalin 75 MG QPM 02/21 2100 02/21 PO 212 Results Last 48 Hrs of Labs/Mics: Laboratory Tests 02/22/18 0644: Anion Gap 12, Estimated GFR > 60, BUN/Creatinine Ratio 17.3, CBC w Diff NO MAN DIFF REQ, RBC 4.60 L, MCV 85.6, MCH 29.1, MCHC 34.0, RDW 16.0 H, MPV 9.0, Gran % 67.6, Lymphocytes % 22.4, Monocytes % 6.7, Eosinophils % 2.9, Basophils % 0.4, Absolute Granulocytes 5.6, Absolute Lymphocytes 1.9, Absolute Monocytes 0.6, Absolute Eosinophils 0.2, Absolute Basophils 0 02/21/18 2214: Troponin I 0.02 02/21/18 1620: Troponin I 0.03 02/21/18 1121: Anion Gap 9, Estimated GFR > 60, BUN/Creatinine Ratio 17.5, Glucose 136 H, Calcium 8.9, Magnesium 2.0, Total Bilirubin 0.4, AST 41, ALT 50, Alkaline Phosphatase 58, Troponin I 0.02, Kcj-R-Dlfikesnrli Pept 103, Total Protein 6.5, Albumin 3.7, Globulin 2.8, Albumin/Globulin Ratio 1.3, TSH 5.020 H, Free T4 1.05, D-Dimer High Sensitivty 272 H, CBC w Diff NO MAN DIFF REQ, RBC 4.62 L, MCV 85.9, MCH 29.2, MCHC 34.0, RDW 15.8 H, MPV 8.5, Gran % 60.3, Lymphocytes % 27.6, Monocytes % 8.8, Eosinophils % 2.9, Basophils % 0.4, Absolute Granulocytes 5.2, Absolute Lymphocytes 2.4, Absolute Monocytes 0.8 H, Absolute Eosinophils 0.3, Absolute Basophils 0 Assessment/Plan Assessment/Plan Assessment: 1. Chest discomfort, ruled out for myocardial infarction 2. Acute congestive heart failure, LVEF unknown 3. Hypertension, uncontrolled Plan: * Increase losartan to 100 mg daily * Continue amlodipine 10 mg daily * Restart terazosin at his usual outpatient dose of 10 mg daily for additional blood pressure control * Continue IV Lasix * Echocardiogram pending Continue telemetry? Yes
--- NOTE | 2018-02-22 20:05 | ECHOCARDIOGRAM REPORT ---
ISIDRA RIDLEY Age: 58 : 1960 Gender: M Exam Date: 02/22/2018 16:08 Exam Location: 1 [address] Ht (in): 72 Wt (lb): 260 BSA: 2.49 BP: 170 / 98 Ordering Physician: Prabha Khan MD Referring Physician: Jacques King MD, PhD Technologist: Daysi Leone [facility] Room Number: [id number] Indications: Chest pain Rhythm: Sinus Technical Quality: Fair FINDINGS Left Ventricle Normal size left ventricle. Moderate concentric left ventricular hypertrophy. Normal left ventricular ejection fraction visually estimated at >60%. Normal left ventricular wall motion. Right Ventricle Normal right ventricular size and function. Right Atrium Normal right atrial size. Left Atrium Normal left atrial size. Mitral Valve Mitral valve thickened. Trace mitral regurgitation. Aortic Valve Diffuse thickening of the aortic valve cusps with reduced excursion. Mild aortic stenosis. Tricuspid Valve Tricuspid valve not well visualized, grossly normal. Trace tricuspid regurgitation. No evidence of pulmonary hypertension. Pulmonic Valve Pulmonic valve not well visualized, grossly normal. Pericardium No pericardial effusion. Great Vessels Normal size aortic root. CONCLUSIONS Normal size left ventricle. Moderate concentric left ventricular hypertrophy. Normal left ventricular ejection fraction visually estimated at > 60%. Trace mitral regurgitation. Mild aortic stenosis. Chris Mason M.D. (Electronically Signed) Final Date: 22 February 2018 19:59 MEASUREMENTS (Male / Female) Normal Values 2D ECHO LV Diastolic Diameter PLAX 4.5 cm 4.2 - 5.9 / 3.9 - 5.3 cm LV Systolic Diameter PLAX 3.0 cm 2.1 - 4.0 cm LV Fractional Shortening PLAX 33.3 % 25 - 46 % LV Ejection Fraction 2D Teich 62.1 % IVS Diastolic Thickness 1.7 cm LVPW Diastolic Thickness 1.6 cm LV Relative Wall Thickness 0.7 RV Internal Dim ED PLAX 3.3 cm 1.9 - 3.8 cm LVOT Diameter 2.2 cm Aortic Root Diameter 3.3 cm LA Volume 56.0 cm 18 - 58 / 22 - 52 cm Ascending Aorta Diameter 3.8 cm DOPPLER AV Peak Velocity 226.0 cm/s AV Peak Gradient 20.4 mmHg AV Mean Velocity 164.0 cm/s AV Mean Gradient 12.0 mmHg AV Velocity Time Integral 53.3 cm LVOT Peak Velocity 137.0 cm/s LVOT Peak Gradient 7.5 mmHg LVOT Mean Velocity 96.9 cm/s LVOT Mean Gradient 4.0 mmHg LVOT Velocity Time Integral 32.6 cm LVOT Stroke Volume 123.9 cm AV Area Cont Eq vti 2.3 cm AV Area Cont Eq pk 2.3 cm MV Peak Velocity 127.0 cm/s MV Peak Gradient 6.5 mmHg MV Mean Velocity 78.0 cm/s MV Mean Gradient 3.0 mmHg Mitral E Point Velocity 107.0 cm/s Mitral A Point Velocity 107.0 cm/s Mitral E to A Ratio 1.0 MV PHT Velocity 117.0 cm/s MV Deceleration [place] 467.0 cm/s MV Pressure Half Time 75.2 ms MV Area PHT 2.9 cm MV Deceleration Time 264.0 ms TR Peak Velocity 265.0 cm/s TR Peak Gradient 28.1 mmHg Right Atrial Pressure 5.0 mmHg Pulmonary Artery Systolic Pressure 33.1 mmHg Right Ventricular Systolic Pressure 33.1 mmHg PV Peak Velocity 135.0 cm/s PV Peak Gradient 7.3 mmHg PV Mean Velocity 95.5 cm/s PV Mean Gradient 4.0 mmHg PV Velocity Time Integral 31.1 cm LV E' Lateral Velocity 7.9 cm/s Mitral E to LV E' Lateral Ratio 13.5 LV E' Septal Velocity 5.8 cm/s Mitral E to LV E' Septal Ratio 18.6
[2018-02-23 00:44] VITALS: BP 180/110
[2018-02-23 06:26] VITALS: BP 162/84
--- NOTE | 2018-02-23 07:26 | PN- Housestaff ---
Arcelia Neumann 02/23/18 0725: Subjective Follow-up For: CP on exertion, b/l l/l swelling, abd distension Complaints: no complaints Tele-Events Since Last Visit: NSR Subjective: Seen lying in NAD in bed. No complaints/no acute events Review of Systems Constitutional: Reports: see HPI. Objective Last 24 Hrs of Vital Signs/I&O Vital Signs Date Time Temp Pulse Resp B/P B/P Pulse O2 O2 Flow FiO2 Mean Ox Delivery Rate 02/23 2247 97.8 74 18 164/80 94 Room Air 02/23 2227 74 95 02/23 2110 98.0 73 178/90 02/23 1640 73 192/98 02/23 1423 98.0 73 18 192/98 93 Room Air 02/23 0833 64 162/84 02/23 0832 64 162/84 02/23 0626 98.0 64 18 16284 93 Room Air 02/23 0044 64 180/110 Intake & Output 02/23 1600 02/23 0800 02/23 0000 Intake Total 500 440 Output Total 450 425 Balance 50 15 Intake, Oral 500 440 Output, Urine 450 425 Patient 274 lb Weight Physical Exam General Appearance: Alert, Oriented X3, Cooperative, No Acute Distress Skin: No Rashes, No Breakdown, No Significant Lesion Skin Temp/Moisture Exam: Cool/Dry Sepsis Skin Exam (color): Normal for Ethnicity HEENT: Atraumatic, Mucous Membr. moist/pink Neck: Supple Cardiovascular: Regular Rate, Normal S1, Normal S2, No Murmurs Lungs: Normal Air Movement, mild basal crackles Abdomen: Normal Bowel Sounds, Soft, No Tenderness, No Hepatospenomegaly, No Masses Neurological: Normal Speech, Strength at 5/5 X4 Ext, Normal Tone Extremities: No Clubbing, No Cyanosis, No Edema Assessment/Plan Assessment: Pt is a 58-year-old M with a PMHx of HTN, DM, HAYDEN, diabetic neuropathy, bilateral lower extremity edema, presented to the ED at [facility] with chief complaint of substernal chest pain on exertion at work. Patient also complains of abdominal distention and puffiness of the face for the past few days and pedal edema bilateral legs for the past few weeks.Pt reports increase in intake of salty food lately. Patient denies palpitations, chest pain worsening on leaning forward, chest pain radiating to the back, chest pain on taking deep breaths, fever, chills, sick contacts, dysuria, hematuria, change on bowel or urinary habits. VS: BP was going high overnight: 184/80, 190/102, 166/70, 170/98. Afebrile, sating well on RA Echo: Normal size left ventricle. Moderate concentric left ventricular hypertrophy. Normal left ventricular ejection fraction visually estimated at > 60%. Trace mitral regurgitation.Mild aortic stenosis. Problems list: 1. Chest Pain on exertion 2. b/l l/l edema & abd distension-CHF 3. HAYDEN on CPAP A & P: #Chest pain/New onset CHF: * ACS has been ruled out * Wong. IV lasix 20 mg IV BID, losartan 100 po, alodipine 10mg, restrt clonidine, terazosin * next 24-48 hours we will transition to oral diuretic therapy * Keep check on K and Mag levels * daily weights * monitor I & O * Salt restricted diet #HAYDEN: * It is likely rt heart failure due to HAYDEN leading to pulm HTN. * Pt will be provided with CPAP 13 as he uses it at home at night * Pt will f/u with PCP after d/c. Pt may benefit from a pulmo consult and a formal sleep study which will be helpful in titrating CPAP. #Hypertensive urgency * Wong. IV lasix 20 mg IV BID, losartan 100 po, alodipine 10mg, restrt clonidine, terazosin #DM Type 2 * Accu-Chek * sliding scale NovoLog insulin & half of his long-acting insulin * HbA1c. #Chronic LBP: * Cont. Duloxetine #Diabetic Nueropathy: * Increase lyrica, d/c gabapentin #Code: Full code Diet: consistent carbohydrate, heart healthy DVT px: ALPS Problem List: 1. HAYDEN (obstructive sleep apnea) 2. Edema, lower extremity 3. Distended abdomen 4. Angina of effort 5. Hyperglycemia 6. Hypertensive urgency Pain Ratin Pain Location: none Pain Goal: Remain pain free Pain Plan: n/a Tomorrow's Labs & Rationales: cbc, bep Coco DOMÍNGUEZ,Dick 02/23/18 1455: Attending MD Review Statement Attending Statement Attending MD Statement: examined this patient, discuss w/resident/PA/MOTORCYCLE REPAIR SHOP SUPERVISOR, agreed w/resident/PA/MOTORCYCLE REPAIR SHOP SUPERVISOR, reviewed EMR data (avail), discussed with nursing, discussed with case mgmt, amended to note Attending Assessment/Plan: Patient seen and examined. Resting comfortably not in any acute distress. No issues overnight. No events on telemetry monitoring. Reports feeling much better compared to presentation. Blood pressure is better controlled although with periods of elevation. Renal artery stenosis has been ruled out in the past. Echocardiogram showed normal ejection fraction and normal wall motion. He does have moderate left ventricular hypertrophy. Continue diuresis with Lasix IV. He received a total of 60 mg IV this morning. If he remains clinically stable he will be transitioned to Lasix 40 mg orally tomorrow with outpatient follow-up in the CHF clinic. For blood pressure continue his ARB, amlodipine and doxazosin. Resume his clonidine.
[2018-02-23] MEDS ORDERED: AMLODIPINE BESY10 M1 PO (12:12)
--- NOTE | 2018-02-23 13:52 | PN- Student ---
Subjective Subjective: is a 58 y/o male with a past medical history of HTN, insulin- dependent DM, HAYDEN, and diabetic neuropathy. The patint presented to the ER 02/21/18 evening after performing mildly strenuating work around the house with substernal chest pain w/o radiation and palpitation that was relieved upon administering nitroglycerin sublingual. The patient is currently taking the following medications: Amlodipine (5mg PO daily), Aspirin (81mg PO varun), Cetorozine (10mg PO daily), Clonidine (0.3mg PO qPM), Dapagliflozin Propanediol (5mg PO daily 2x), Dexlansoprazole (60mg PO daily), Duloxetine (60mg PO qPM 2x), Ezetimibe (10mg PO daily), Gabapentin ( 300mg PO BID), Glimepiride (4mg PO daily), Ibuprofen (200mg PO daily 2x), Insulin Glargine/Human.rec.analog (300 unit/mL 1.5mL insulin pen 95 units subQ qPM), Metformin (1000mg PO BID), Pregabalin (75mg PO qPM), valsartan/HCTZ (320- 25mg PO daily). NKDA No surgical history The patient does not use tobacco, alcohol, or drugs for recreational purposes. His dad had heart problems for which he underwent bipass surgery for but unfortunately post-operatively. His brother is 47 and had kidney cancer for which he underwent a nephrectomy for. The patient reports a on/off history of reflux. 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 He has diabetic neuropathy which makes it difficult for him to ambulate; he also complains of pains in his lower extremities for which he has taken gabapentin for and lyrica without relief. Objective Objective: On admission his BP was 176/92 HR 59. His pulse was regular. No signs of JVD. A crescendo decrescendo murmur was hear upon ascultation of the uper sternal borders. Mild crackels were heard in the base of the lungs upon ascultating the lung caballero. Bilateral pedal edema and facial swelling; negative radha sign. Troponins were 0.02 and 0.03 Potassium low (3.4) D-dimer elevated slightly (272) Doppler U/S showed no evidence of DVT CXR showed minimal atelectasis of the right lung base Echo showed mild with EF 60% Results Results: Laboratory Tests 02/23/18 0616: Anion Gap 11, Estimated GFR > 60, BUN/Creatinine Ratio 17.5 02/22/18 0644: Anion Gap 12, Estimated GFR > 60, BUN/Creatinine Ratio 17.3, CBC w Diff NO MAN DIFF REQ, RBC 4.60 L, MCV 85.6, MCH 29.1, MCHC 34.0, RDW 16.0 H, MPV 9.0, Gran % 67.6, Lymphocytes % 22.4, Monocytes % 6.7, Eosinophils % 2.9, Basophils % 0.4, Absolute Granulocytes 5.6, Absolute Lymphocytes 1.9, Absolute Monocytes 0.6, Absolute Eosinophils 0.2, Absolute Basophils 0 02/21/18 2214: Troponin I 0.02 02/21/18 1620: Troponin I 0.03 02/21/18 1121: Anion Gap 9, Estimated GFR > 60, BUN/Creatinine Ratio 17.5, Glucose 136 H, Calcium 8.9, Magnesium 2.0, Total Bilirubin 0.4, AST 41, ALT 50, Alkaline Phosphatase 58, Troponin I 0.02, [id number] Pept 103, Total Protein 6.5, Albumin 3.7, Globulin 2.8, Albumin/Globulin Ratio 1.3, TSH 5.020 H, Free T4 1.05, D-Dimer High Sensitivty 272 H, CBC w Diff NO MAN DIFF REQ, RBC 4.62 L, MCV 85.9, MCH 29.2, MCHC 34.0, RDW 15.8 H, MPV 8.5, Gran % 60.3, Lymphocytes % 27.6, Monocytes % 8.8, Eosinophils % 2.9, Basophils % 0.4, Absolute Granulocytes 5.2, Absolute Lymphocytes 2.4, Absolute Monocytes 0.8 H, Absolute Eosinophils 0.3, Absolute Basophils 0 Assessment/Plan Assessment: His losartan was increased to 100mg daily. Amlodipine was increased to 10mg daily. Continuing Aspirin therapy; daily 81mg PO He was given supplemental potassium for his hypokalemia Lasix 20mg IV q12 hours
[2018-02-23 14:23] VITALS: BP 192/98
--- NOTE | 2018-02-23 15:25 | PN- Cardiology ---
Subjective Subjective: The patient reports that he is feeling much better. Shortness of breath and chest discomfort have improved significantly. No palpitations. No diaphoresis. No nausea or vomiting. Objective Vital Signs and I&Os Vital Signs Date Time Temp Pulse Resp B/P B/P Pulse O2 O2 Flow FiO2 Mean Ox Delivery Rate 02/23 1423 98.0 73 18 192/98 93 Room Air 02/23 0833 64 162/84 02/23 0832 64 162/84 02/23 0626 98.0 64 18 162/84 93 Room Air 02/23 0044 64 180/110 02/22 2234 98.1 71 16 180/120 92 02/22 1909 71 18 164/80 02/22 1614 70 18 210/110 02/22 1609 78 18 190/86 Intake & Output 02/23 0802/23 0000 02/22 1600 02/22 0802/22 0000 Intake Total 500 440 100 350 Output Total 450 425 750 350 Balance 50 15 -750 100 0 Intake, Oral 500 440 100 350 Output, Urine 450 425 750 350 Patient 274 lb 281 lb Weight Weight Bed scale Measurement Method Physical Exam: Gen: The patient is in no acute distress HEENT: Normal nose, ears, and oropharynx. Pupils equal bilaterally. Conjunctiva normal. Neck: Supple with no JVD, no masses, and no thyromegaly Lungs: Scattered rhonchi bilaterally with normal respiratory effort Heart: RRR, S1, S2, no murmurs. 2+ peripheral edema, 2+ pulses in the lower extremities bilaterally Abdomen: Soft, nontender, no masses. No hepatomegaly. No splenomegaly Extremities: No clubbing or cyanosis. Normal muscle strength in the upper and lower extremities Skin: Normal skin turgor with no skin ulcers or lesions noted. Neuro: Cranial nerves intact. Sensation intact Psych: Alert and oriented x 3 with appropriate affect Current Medications: Current Medications Sig/Arlet Start time Last Medication Dose Route Stop Time Status Admin Acetaminophen 1,000 MG Q6P PRN 02/23 1045 AC N/A 1 UNIT IV Acetaminophen 650 MG Q4P PRN 02/23 1045 AC PO Amlodipine Besylate 10 MG DAILY 02/22 0900 AC 02/23 PO 0833 Aspirin Buffered 81 MG DAILY 02/21 1838 AC 02/23 PO 0832 Clonidine 0.3 MG QPM 02/23 2100 AC PO Doxazosin Mesylate 10 MG DAILY 02/22 2000 CAN PO Doxazosin Mesylate 4 MG DAILY 02/22 1700 AC 02/23 PO 0832 Duloxetine HCl 120 MG QPM 02/21 2100 AC 02/22 PO 2137 Ezetimibe 10 MG DAILY 02/21 1847 AC 02/23 PO 0833 Furosemide 40 MG ONCE ONE 02/23 0915 DC 02/23 IV 02/23 0916 1031 Furosemide 20 MG 7:30 AM, & 4:30 PM 02/21 2015 DC 02/23 IV 0644 Gabapentin 300 MG BID 02/21 2100 AC 02/23 PO 0833 Heparin Sodium 5,000 UNIT Q8 02/23 1400 AC 02/23 (Porcine) SC 1229 Hydralazine HCl 25 MG ONCE ONE 02/23 1445 DC PO 02/23 1446 Insulin Aspart 0 TIDAC 02/22 0800 AC 02/23 SC 1226 Insulin Detemir 45 UNITS DAILY 02/22 0900 AC 02/23 SC 0834 Losartan Potassium 100 MG DAILY 02/22 0900 AC 02/23 PO 0832 Morphine Sulfate 1 MG Q8 PRN 02/23 1045 AC IV Potassium Chloride 40 MEQ ONCE ONE 02/23 1145 DC 02/23 PO 02/23 1146 1136 Pregabalin 75 MG QPM 02/21 2100 AC 02/22 PO 2137 Results Last 48 Hrs of Labs/Mics: Laboratory Tests 02/23/18 0616: Anion Gap 11, Estimated GFR > 60, BUN/Creatinine Ratio 17.5 02/22/18 0644: Anion Gap 12, Estimated GFR > 60, BUN/Creatinine Ratio 17.3, CBC w Diff NO MAN DIFF REQ, RBC 4.60 L, MCV 85.6, MCH 29.1, MCHC 34.0, RDW 16.0 H, MPV 9.0, Gran % 67.6, Lymphocytes % 22.4, Monocytes % 6.7, Eosinophils % 2.9, Basophils % 0.4, Absolute Granulocytes 5.6, Absolute Lymphocytes 1.9, Absolute Monocytes 0.6, Absolute Eosinophils 0.2, Absolute Basophils 0 02/21/184: Troponin I 0.02 02/21/18 1620: Troponin I 0.03 Recent Imaging Studies: Echocardiogram: Normal size left ventricle. Moderate concentric left ventricular hypertrophy. Normal left ventricular ejection fraction visually estimated at > 60%. Trace mitral regurgitation. Mild aortic stenosis. Assessment/Plan Assessment/Plan Assessment: 1. Chest discomfort, ruled out for myocardial infarction 2. Acute HFpEF 3. Hypertension, uncontrolled Plan: * Continue losartan and amlodipine * Continue doxazosin * Clonidine has been restarted today for additional blood pressure control Continue telemetry? Yes
[2018-02-23 22:47] VITALS: BP 164/80
[2018-02-24 01:48] VITALS: BP 188/90
[2018-02-24 03:08] VITALS: BP 145/80
[2018-02-24 06:55] VITALS: BP 162/80
--- NOTE | 2018-02-24 07:37 | PN- Housestaff ---
Arcelia Neumann 02/24/18 0737: Subjective Follow-up For: Cor Pulmonale/Rt sided heart failure Complaints: no complaints Tele-Events Since Last Visit: NSR. HR 58-67 Subjective: Pt seen and Review of Systems Constitutional: Reports: see HPI. Objective Last 24 Hrs of Vital Signs/I&O Vital Signs Date Time Temp Pulse Resp B/P B/P Pulse O2 O2 Flow FiO2 Mean Ox Delivery Rate 02/24 1124 130/74 02/24 0826 67 170/100 02/24 0825 67 170/100 02/24 0825 67 170/100 02/24 0825 67 170/100 02/24 0820 67 170/100 02/24 0800 Room Air 02/24 0655 98.7 67 18 162/80 96 Room Air 02/24 0308 67 145/80 02/24 0216 64 92 02/24 0215 65 188/90 02/24 0148 65 188/90 02/24 0043 93 200/110 02/24 0000 Room Air 02/23 2247 97.8 74 18 164/80 94 Room Air Intake & Output 02/24 1600 02/24 0800 02/24 0000 Intake Total Output Total 600 Balance -600 Output, Urine 600 Patient 270 lb Weight Weight Bed scale Measurement Method Physical Exam General Appearance: Alert, Oriented X3, Cooperative, No Acute Distress Skin: No Rashes, No Breakdown, No Significant Lesion Skin Temp/Moisture Exam: Cool/Dry Sepsis Skin Exam (color): Normal for Ethnicity HEENT: Atraumatic, Mucous Membr. moist/pink Neck: Supple Cardiovascular: Regular Rate, Normal S1, Normal S2, No Murmurs Lungs: Clear to Auscultation, Normal Air Movement Abdomen: Normal Bowel Sounds, Soft, No Tenderness, No Hepatospenomegaly, No Masses Neurological: Normal Gait, Normal Speech, Strength at 5/5 X4 Ext, Normal Tone Extremities: No Clubbing, No Cyanosis, No Edema Vascular: Normal Pulses Assessment/Plan Assessment: Pt is a 58-year-old M with a PMHx of HTN, DM, HAYDEN, diabetic neuropathy, bilateral lower extremity edema, presented to the ED at [facility] with chief complaint of substernal chest pain on exertion at work. Patient also complains of abdominal distention and puffiness of the face for the past few days and pedal edema bilateral legs for the past few weeks.Pt reports increase in intake of salty food lately. Patient denies palpitations, chest pain worsening on leaning forward, chest pain radiating to the back, chest pain on taking deep breaths, fever, chills, sick contacts, dysuria, hematuria, change on bowel or urinary habits. VS this mornin/80. Afebrile, sating well on RA Blood pressure readings overnight: 192/98, 178/90, 200/110, 145/80 Problems list: 1. Chest Pain on exertion 2. b/l l/l edema & abd distension-CHF 3. HAYDEN on CPAP A & P: Patient looks stable and can be discharged today #Chest pain: * ACS has been ruled out * Keep check on K and Mag levels * daily weights * monitor I & O * Salt restricted diet #Cor pulmonale: * It is likely rt heart failure due to HAYDEN leading to pulm HTN * Pt will f/u with PCP after d/c. Pt may benefit from a pulmo consult and a formal sleep study which will be helpful in titrating CPAP #Hypertensive urgency * Resolved * Overnight his blood pressure readings were high and he was given hydralazine 5 mg IV twice. In the morning it was found that a smaller size cuff was being used where his blood pressure. His blood pressure was rechecked this morning with a size of cuff appropriate for his body habitus and it was found that he was normotensive. * Patient will be discharged on clonidine 0.3 twice daily, amlodipine 10 mg, losartan 100, Lasix 40 p.o. once daily, aspirin 81, doxazosin 8 mg at night #DM Type 2 * Accu-Chek * sliding scale NovoLog insulin & half of his long-acting insulin #Chronic LBP: * Cont. Duloxetine #Diabetic Nueropathy: * Increase lyrica, d/c gabapentin #Code: Full code Diet: consistent carbohydrate, heart healthy DVT px: ALPS Problem List: 1. HAYDEN (obstructive sleep apnea) 2. Edema, lower extremity 3. Distended abdomen 4. Angina of effort 5. Hyperglycemia 6. Hypertensive urgency Pain Ratin Pain Location: None Pain Goal: Remain pain free Pain Plan: Follow-up Tomorrow's Labs & Rationales: Shiva Sanchez MD 02/24/182136: Attending MD Review Statement Attending Statement Attending MD Statement: examined this patient, discuss w/resident/PA/[employer]OV[employer] SUPERVISOR, agreed w/resident/PA/[employer]OM[employer] RECOVERY SUPERVISOR, reviewed EMR data (avail), discussed with nursing, discussed with case mgmt, amended to note Attending Assessment/Plan: The patient was seen and discussed with house staff, nursing, and case management. Did receive IV Hydralazine yesterday. BP when taken with large cuff this morning was 130/74. OK to discharge to home today on Losartan (no HCTZ0), Lasix 40 mg daily (will titrate as OP), Doxazosin 8 mg qpm, Amlodipine 10 mg daily and Clonidine 0.2 mg bid. Will taper off clonidine as OP if able. To follow-up with Drs. Mason and Laurie. Consider further evaluation of CPAP ( patient did not wear last pm as he said there was no humidification). With normal EF on ECHO, nl BNP, no CXR evidence of CHF, this patient more likely has edema secondary to Amlodipine and ?cor pulmonale related to sleep apnea. Weight has decreased 11 lbs and patient advised to monitor daily weights at home and follow low sodium diet.
[2018-02-24 08:20] VITALS: BP 170/100
[2018-02-24 08:22] LABS: ABSOLUTE BASOPHIL COUNT 0 /CUMM (0.0-0.2); ABSOLUTE EOSINOPHIL COUNT 0.3 /CUMM (0.0-0.7); ABSOLUTE GRANULOCYTE CT 5.7 /CUMM (1.4-6.5); ABSOLUTE LYMPH COUNT 2.2 /CUMM (1.2-3.4); ABSOLUTE MONOCYTE COUNT 0.6 /CUMM (0.10-0.60); BASOPHIL % 0.5 % (0.0-2.0); EOSINOPHIL % 3.4 % (0-5); GRANULOCYTE % 64.4 % (42.2-75.2); HEMATOCRIT 41.3 % (42-52); MEAN CORPUSCULAR HGB 29.3 PG (27.0-31.0); MEAN CORPUSCULAR HGB CONC 34.2 G/DL (33.0-37.0); MEAN CORPUSCULAR VOLUME 85.6 FL (80.0-94.0); MEAN PLATELET VOLUME 9.1 FL (7.4-10.4); PLATELET COUNT 253 /CUMM (130-400); RED BLOOD CELL CT 4.82 /CUMM (4.70-6.10); WHITE BLOOD CELL COUNT 8.8 /CUMM (4.8-10.8)
[2018-02-24 11:24] VITALS: BP 130/74
[2018-02-24] MEDS ORDERED: CARDURA4 M1 PO ×2 (11:38→13:11)
--- NOTE | 2018-02-24 11:44 | Patient Discharge Instructions ---
Discharge Instructions General Discharge Information You were seen/treated for: Right sided heart failure/Cor pulmonale You had these procedures: If yuou have any of these, please visit your nearest emergency department: Chest pain, shortness of breath, high blood pressure, fever, chills. Special Instructions: -Please check your weights daily -Please follow up with Dr. Sullivan one week after discharge -Please follow up with Dr. Mason one week after discharge Diet Recommended Diet: Heart Healthy Activity Activity Self Limited: Yes Acute Coronary Syndrome Inclusion Criteria At DC or during hospital stay patient has or had the following: ACS DIAGNOSIS No Discharge Core Measures Meds if any: Prescribed or Continued at Discharge Meds if any: NOT Prescribed or Continued at Discharge Congestive Heart Failure Inclusion Criteria At DC or during hospital stay patient has or had the following: CHF DIAGNOSIS No Discharge Core Measures Meds if any: Prescribed or Continued at Discharge Meds if any: NOT Prescribed or Continued at Discharge Cerebrovascular accident Inclusion Criteria At DC or during hospital stay patient has or had the following: CVA/TIA Diagnosis No Discharge Core Measures Meds if any: Prescribed or Continued at Discharge Meds if any: NOT Prescribed or Continued at Discharge Venous thromboembolism Inclusion Criteria VTE Diagnosis No VTE Type NONE VTE Confirmed by (Test) NONE Discharge Core Measures - Per Current guidelines, there needs to be overlap - treatment for the first 5 days of Warfarin therapy. - If discharged on Warfarin prior to 5 days of - overlap therapy, the patient will need to be - assessed for post discharge needs including - *Post discharge parental anticoagulation - *Warfarin and/or parental anticoagulation education - *Follow up date to check INR post discharge At least 5 days overlap therapy as Inpatient No Meds if any: Prescribed or Continued at Discharge Note: Overlap Therapy is Warfarin and Anticoagulant Meds if any: NOT Prescribed or Continued at Discharge
[2018-02-24] MEDS ORDERED: COZAAR100 M1 PO ×2 (11:45→13:11)
--- NOTE | 2018-02-24 11:45 | PN- Cardiology ---
Subjective Subjective: Shortness of breath is significantly improved. No current chest pain. No palpitations. No nausea or vomiting. No diaphoresis. Objective Vital Signs and I&Os Vital Signs Date Time Temp Pulse Resp B/P B/P Pulse O2 O2 Flow FiO2 Mean Ox Delivery Rate 02/24 1124 130/74 02/24 0826 67 170/100 02/24 0825 67 170/100 02/24 0825 67 170/100 02/24 0825 67 170/100 02/24 0820 67 170/100 02/24 0800 Room Air 02/24 0655 98.7 67 18 162/80 96 Room Air 02/24 0308 67 145/80 02/24 0216 64 92 02/24 0215 65 188/90 02/24 0148 65 188/90 02/24 0043 93 200/110 02/24 0000 Room Air 02/23 2247 97.8 74 18 164/80 94 Room Air 02/23 2227 74 95 02/23 2110 98.0 73 178/90 02/23 1640 73 192/98 02/23 1423 98.0 73 18 192/98 93 Room Air Intake & Output 02/24 1600 02/24 0800 02/24 0000 02/23 1600 02/23 0800 02/23 0000 Intake Total 500 440 Output Total 600 450 425 Balance -600 50 15 Intake, Oral 500 440 Output, Urine 600 450 425 Patient 270 lb 274 lb Weight Weight Bed scale Measurement Method Physical Exam: Gen: The patient is in no acute distress HEENT: Normal nose, ears, and oropharynx. Pupils equal bilaterally. Conjunctiva normal. Neck: Supple with no JVD, no masses, and no thyromegaly Lungs: Scattered rhonchi bilaterally with normal respiratory effort Heart: RRR, S1, S2, no murmurs. 2+ peripheral edema, 2+ pulses in the lower extremities bilaterally Abdomen: Soft, nontender, no masses. No hepatomegaly. No splenomegaly Extremities: No clubbing or cyanosis. Normal muscle strength in the upper and lower extremities Skin: Normal skin turgor with no skin ulcers or lesions noted. Neuro: Cranial nerves intact. Sensation intact Current Medications: Current Medications Sig/Arlet Start time Last Medication Dose Route Stop Time Status Admin Acetaminophen 1,000 MG Q6P PRN 02/23 1045 AC N/A 1 UNIT IV Acetaminophen 650 MG Q4P PRN 02/23 1045 AC PO Amlodipine Besylate 10 MG DAILY 02/22 0900 AC 02/24 PO 0825 Aspirin Buffered 81 MG DAILY 02/21 1838 AC 02/24 PO 0825 Clonidine 0.3 MG BID 02/24 09 AC 02/24 PO 08 Clonidine 0.3 MG QPM 02/23 2100 DC 02/24 PO 0043 Doxazosin Mesylate 8 MG DAILY 02/24 0900 AC 02/24 PO 0825 Doxazosin Mesylate 4 MG DAILY 02/22 1700 DC 02/23 PO 0832 Duloxetine HCl 120 MG QPM 02/21 2100 AC 02/23 PO 211 Ezetimibe 10 MG DAILY 02/21 1847 AC 02/24 PO 0825 Furosemide 40 MG DAILY 02/24 1122 AC 02/24 PO 1126 Gabapentin 300 MG BID 02/21 2100 AC 02/24 PO 08 Heparin Sodium 5,000 UNIT Q8 02/23 1400 AC 02/24 (Porcine) SC 0552 Hydralazine HCl 5 MG ONCE ONE 02/24 0215 DC 02/24 IV 02/24 021 0215 Hydralazine HCl 5 MG ONCE ONE 02/23 2045 DC 02/23 IV 02/23 2046 2110 Hydralazine HCl 25 MG ONCE ONE 02/23 1445 DC 02/23 PO 02/23 1446 1640 Insulin Aspart 0 TIDAC 02/22 08 02/24 SC 0912 Insulin Detemir 45 UNITS DAILY 02/22 09 02/24 SC 0828 Losartan Potassium 100 MG DAILY 02/22 09 AC 02/24 PO 0825 Morphine Sulfate 1 MG Q8 PRN 02/23 1045 AC IV Potassium Chloride 40 MEQ ONCE ONE 02/23 1145 DC 02/23 PO 02/23 1146 1136 Pregabalin 75 MG QPM 02/21 2100 AC 02/23 PO 2111 Results Last 48 Hrs of Labs/Mics: Laboratory Tests 02/24/18 0657: Anion Gap 10, Estimated GFR > 60, BUN/Creatinine Ratio 20.0, Magnesium 2.2, CBC w Diff NO MAN DIFF REQ, RBC 4.82, MCV 85.6, MCH 29.3, MCHC 34.2, RDW 16.0 H, MPV 9.1, Gran % 64.4, Lymphocytes % 24.9, Monocytes % 6.8, Eosinophils % 3.4, Basophils % 0.5, Absolute Granulocytes 5.7, Absolute Lymphocytes 2.2, Absolute Monocytes 0.6, Absolute Eosinophils 0.3, Absolute Basophils 0 02/23/18 0616: Anion Gap 11, Estimated GFR > 60, BUN/Creatinine Ratio 17.5 Assessment/Plan Assessment/Plan Assessment: 1. Chest discomfort, ruled out for myocardial infarction 2. Acute HFpEF 3. Hypertension, uncontrolled Plan: * Continue losartan and amlodipine * Continue doxazosin * Clonidine clonidine * Would decrease Lasix to 5 mg daily on discharge * Follow up in the office in 1 week Continue telemetry? No
[2018-02-24] MEDS ORDERED: LASIX40 M1 PO ×2 (11:46→13:11)
[2018-02-24] MEDS ORDERED: CATAPRES0.3 M1 PO (11:48)
[2018-02-24] MEDS ORDERED: CLONIDINE HCL0.1 MG PO ×2 (11:51→13:11)
[2018-02-24] MEDS ORDERED: AMLODIPINE BESY10 M1 PO (13:35)
--- NOTE | 2018-02-24 22:35 | Discharge Summary ---
Hospital Course Course Attending Physician: [facility] Course: Pt will f/u with PCP after d/c. Pt may benefit from a pulmo consult and a formal sleep study which will be helpful in titrating CPAP Allergies: Uncoded Allergies: POLLEN (Mild, RINITIS 03/17/14) Discharge Instructions Medications at Discharge Discharge Medications: Stop taking the following medications: Terazosin HCl (Terazosin HCl) 10 MG CAPSULE ORAL Every night Qty = 30 Valsartan/Hydrochlorothiazide (Valsartan-Hctz 320-25 MG Tab) 1 EACH TABLET ORAL DAILY Qty = 30 Ibuprofen (Ibuprofen) 200 MG CAPSULE ORAL DAILY Clonidine HCl (Clonidine HCl) 0.3 MG TABLET ORAL TWICE DAILY Qty = 30 Continue taking these medications: Aspirin (Ecotrin*) 81 MG TABLET.DR 1 Tablet ORAL DAILY Comments: Last Taken: 02/24/18 Time: 9AM Metformin HCl (Glucophage) 1,000 MG TABLET 1 Tablet ORAL TWICE DAILY Comments: NOT GIVEN IN HOSPITAL Gabapentin (Gabapentin) 300 MG CAPSULE 1 Capsule ORAL TWICE DAILY Qty = 60 Comments: Last Taken: 02/24/18 Time: 9AM Duloxetine HCl (Duloxetine HCl) 60 MG CAPSULE.DR 2 Capsule ORAL Every night Qty = 60 Comments: NOT GIVEN IN HOSPITAL Cetirizine HCl (Cetirizine HCl) 10 MG TAB.CHEW 1 Tablet ORAL DAILY Comments: NOT GIVEN IN HOSPITAL Dexlansoprazole (Dexilant) 60 MG CAP.BP 1 Capsule ORAL DAILY Comments: NOT GIVEN IN HOSPITAL Insulin Lispro (Humalog) (Unknown Strength) VIAL Unknown Dose SC 3 TIMES DAILY BEFORE MEALS Comments: NOT GIVEN IN HOSPITAL. PT ON NOVOLOG SLIDING SCALE Insulin Glargine,Hum.rec.anlog (Toujeo Solostar) 300 UNIT/ML (1.5 ML) INSULN.PEN 95 Units SC Every night Comments: NOT GIVEN IN HOSPITAL Dapagliflozin Propanediol (Farxiga) 5 MG TABLET 2 Tablet ORAL DAILY Qty = 60 Comments: NOT GIVEN IN HOSPITAL Pregabalin (Lyrica) 75 MG CAPSULE 1 Capsule ORAL Every night Comments: Last Taken: 02/23/18 Time: 9PM Ezetimibe (Zetia) 10 MG TABLET 1 Tablet ORAL DAILY Comments: Last Taken: 02/24/18 Time: 9AM Glimepiride (Amaryl) 4 MG TABLET 1 Tablet ORAL DAILY Comments: NOT GIVEN IN HOSPITAL Start taking the following new medications: Clonidine HCl (Clonidine HCl) 0.1 MG TABLET 0.3 Milligram ORAL TWICE DAILY Qty = 60 No Refills Instructions: . Comments: Last Taken: 02/24/18 Time: 9AM Furosemide (Lasix) 40 MG TABLET 40 Milligram ORAL DAILY Qty = 30 No Refills Instructions: . Comments: Last Taken: 02/24/18 Time: 9AM Losartan (Cozaar) 100 MG TABLET 100 Milligram ORAL DAILY Qty = 30 No Refills Instructions: . Comments: Last Taken: 02/24/18 Time: 9AM Doxazosin Mesylate (Cardura) 4 MG TABLET 2 Tablet ORAL DAILY Qty = 60 No Refills Instructions: . Comments: Last Taken: 02/24/18 Time: 9AM The following medications have been changed: Old: Amlodipine Besylate (Amlodipine Besylate) 10 MG TABLET 1 Tablet ORAL DAILY Qty = 30 New: Amlodipine Besylate (Amlodipine Besylate) 10 MG TABLET 1 Tablet ORAL DAILY Qty = 30 Instructions: . Comments: Last Taken: 02/24/18 Time: 9AM
== END 2018-02-24 12:48 | DRG 304 ==
LOC: ERH 11:12 → ERHI 17:30 → 1NO 17:30 → ENRESERV 18:43 → ENTRNSPT 19:57 → EDTRNSPT 19:59 → EDTRNSPTSTS 19:59 → 1NO 20:01 → CMPTRNSPT 20:38 → 1NO 21:20 → ENPENDDIS 02-24 12:02 → ENTRNSPT 02-24 12:19 → EDTRNSPT 02-24 12:46 → EDTRNSPTSTS 02-24 12:46 → 1NO 02-24 12:48 → CMPTRNSPT 02-24 12:51
PROVIDERS: Emergency Medicine; Internal Medicine; Student in an Organized Health Care Education/Training Program
PROC: 5A09357 Assistance with Respiratory Ventilation, Less than 24 Consecutive Hours, Continuous Positive Airway Pressure (ICD-10-PCS; principal; 2018-02-23)
DX: I16.0 Hypertensive urgency (principal); I50.31 Acute diastolic (congestive) heart failure; G47.33 Obstructive sleep apnea (adult) (pediatric); I27.81 Cor pulmonale (chronic); E11.40 Type 2 diabetes mellitus with diabetic neuropathy, unspecified; E11.65 Type 2 diabetes mellitus with hyperglycemia; E78.5 Hyperlipidemia, unspecified; I11.0 Hypertensive heart disease with heart failure; Z79.82 Long term (current) use of aspirin; Z79.4 Long term (current) use of insulin; K21.9 Gastro-esophageal reflux disease without esophagitis; R60.9 Edema, unspecified; M54.9 Dorsalgia, unspecified
CPT/HCPCS: 1288; 2000; 6020; 36592; 71046; 82436; 93005; 93010; 93306; 93970; G0378; J0360; J1644; J1940; J3490